=== PATIENT | female | born 1990 | race Two or more races ===

== ENCOUNTER 2019-10-25 00:32 | Inpatient (IN) | payer MEDICARE, MEDICAID ==
[~2019-10-25] VITALS: Ht 170.2 cm; Wt 81.9 kg
[2019-10-25] MEDS ORDERED: DIVA125SP PO (01:11)
[2019-10-25] MEDS ORDERED: HALO10 PO (01:11)
[2019-10-25 02:02] LABS: BASOPHILS % (AUTO) 0.7 % (0.0-2.0); EOSINOPHILS % (AUTO) 1.2 % (1.0-6.0); HEMATOCRIT 34.9 % (36-46); HEMOGLOBIN 11.6 g/dL (12.0-16.0); LYMPHOCYTES # (AUTO) 3.7 K/uL (1.0-4.8); LYMPHOCYTES % (AUTO) 29.1 % (22.0-44.0); MEAN CORPUSCULAR HEMOGLOBIN 28.9 pg (26.0-34.0); MEAN CORPUSCULAR HGB CONC 33.2 G/dL (31.0-37.0); MEAN CORPUSCULAR VOLUME 87 fL (80-100); MONOCYTES # (AUTO) 1.1 K/uL (0.1-1.0); NEUTROPHILS # (AUTO) 7.6 K/uL (1.8-7.7); PLATELET COUNT (AUTO) 417 K/uL (150-450); RED BLOOD CELL COUNT(AUTO) 4.01 MIL/uL (4.00-5.20); RED CELL DISTRIBUTION WIDTH 15.7 % (11.5-14.5)
[2019-10-25 02:13] LABS: ANION GAP 9 mmol/L (8-16); CALCIUM, TOTAL 9.1 mg/dL (8.8-10.5); CARBON DIOXIDE 27 mmol/L (22-29); CHLORIDE 101 mmol/L (98-107); CREATININE 0.66 mg/dL (0.60-1.30); GLOMERULAR FILTR. RATE CALC > 60 mL/min (>60); GLUCOSE,RANDOM 106 mg/dL (70-110); SODIUM SERUM 137 mmol/L (136-145); UREA NITROGEN, BLOOD 8 mg/dL (7-18)
[2019-10-25 02:17] LABS: AMPHET/METH SCREEN,URINE NEGATIVE (NEGATIVE); BARBITURATE SCREEN, URINE NEGATIVE (NEGATIVE); BENZODIAZEPINES SCREEN,URINE NEGATIVE (NEGATIVE); CANNABINOID SCREEN,URINE NEGATIVE (NEGATIVE); COCAINE SCREEN,URINE NEGATIVE (NEGATIVE); METHADONE SCREEN, URINE NEGATIVE (NEGATIVE); OPIATE SCREEN,URINE NEGATIVE (NEGATIVE); PHENCYCLIDINE SCREEN,URINE NEGATIVE (NEGATIVE)
[2019-10-25 02:25] LABS: ALANINE AMINOTRANSFERASE 18 U/L (12-78); ALBUMIN 3.6 g/dL (3.4-5.0); ALKALINE PHOSPHATASE 71 U/L (46-116); ASPARTATE AMINOTRANSFERASE 12 U/L (15-37); BILIRUBIN,TOTAL 0.1 mg/dL (0.1-1.0); HCG,QUANTITATIVE < 1 mIU/mL (0-6); TOTAL PROTEIN, SERUM 7.2 g/dL (6.4-8.2); VALPROIC ACID 96 mcg/mL (50-100)
[2019-10-25] MEDS ORDERED: QUEtiapine FUMARATE 100 MG TABLET PO PRN (02:45)
[2019-10-25] MEDS ORDERED: LORazepam 2 MG TABLET PO PRN (02:45)
[2019-10-25] MEDS ORDERED: ZOLPIDEM TARTRATE 10 MG TABLET PO PRN (02:45)
[2019-10-25 04:10] LABS: APPEARANCE,URINE CLEAR (CLEAR); BILIRUBIN,URINE NEGATIVE (NEGATIVE); GLUCOSE, URINE (UA) NEGATIVE (NEGATIVE); KETONES,URINE NEGATIVE (NEGATIVE); LEUKOCYTE ESTERASE ,URINE SMALL (NEGATIVE); NITRATE,URINE NEGATIVE (NEGATIVE); OCCULT BLOOD,URINE NEGATIVE (NEGATIVE); PROTEIN,URINE NEGATIVE (NEGATIVE); UROBILINOGEN,URINE 0.2 mg/dL (<=1.0)
[2019-10-25 04:20] LABS: BACTERIA,URINE None Seen /HPF (None Seen); RBC,URINE None Seen /HPF (0-2); SQUAMOUS EPITHELIAL CELL,UR Few /LPF (None Seen)
[2019-10-25 05:51] VITALS: BP 125/68
[2019-10-25 09:55] VITALS: BP 112/66
[2019-10-25] MEDS: ESCITALOPRAM OXALATE 10 MG TABLET PO SCH (12:06)
[2019-10-25 20:00] VITALS: BP 106/61
[2019-10-25] MEDS: HALOPERIDOL 10 MG TABLET PO SCH (20:25)
[2019-10-25] MEDS: DIVALPROEX SODIUM 500 MG DR TABLET PO SCH (20:25)
[2019-10-26 08:41] LABS: CHOL/HDL RATIO 3.8 (3.9-5.7)
[2019-10-26 09:14] VITALS: BP 115/66
[2019-10-26] MEDS: ESCITALOPRAM OXALATE 10 MG TABLET PO SCH (09:30)
[2019-10-26] MEDS: HALOPERIDOL 5 MG TABLET PO SCH (12:39)
[2019-10-26 16:46] VITALS: BP 105/56
[2019-10-26] MEDS: DIVALPROEX SODIUM 500 MG DR TABLET PO SCH (20:30)
[2019-10-26] MEDS: HALOPERIDOL 10 MG TABLET PO SCH (20:30)
[2019-10-27 02:32] VITALS: BP 114/68
[2019-10-27] MEDS: HALOPERIDOL 5 MG TABLET PO SCH (09:15)
[2019-10-27] MEDS: ESCITALOPRAM OXALATE 10 MG TABLET PO SCH (09:15)
[2019-10-27 09:50] VITALS: BP 109/67
[2019-10-27 16:59] VITALS: BP 115/67
[2019-10-27] MEDS: DIVALPROEX SODIUM 500 MG DR TABLET PO SCH (20:43)
[2019-10-27] MEDS: HALOPERIDOL 10 MG TABLET PO SCH (20:44)
[2019-10-28 05:14] VITALS: BP 111/65
[2019-10-28] MEDS: ESCITALOPRAM OXALATE 10 MG TABLET PO SCH (08:01)
[2019-10-28] MEDS: HALOPERIDOL 5 MG TABLET PO SCH (08:02)
[2019-10-28 08:47] LABS: BASOPHILS % (AUTO) 0.5 % (0.0-2.0); EOSINOPHILS % (AUTO) 1.4 % (1.0-6.0); HEMATOCRIT 35.2 % (36-46); LYMPHOCYTES # (AUTO) 3.4 K/uL (1.0-4.8); MEAN CORPUSCULAR HEMOGLOBIN 29.5 pg (26.0-34.0); MEAN CORPUSCULAR HGB CONC 34.2 G/dL (31.0-37.0); MEAN CORPUSCULAR VOLUME 87 fL (80-100); MONOCYTES # (AUTO) 0.5 K/uL (0.1-1.0); NEUTROPHILS # (AUTO) 6.8 K/uL (1.8-7.7); NEUTROPHILS % (AUTO) 62.1 % (40.0-70.0); PLATELET COUNT (AUTO) 440 K/uL (150-450); RED BLOOD CELL COUNT(AUTO) 4.07 MIL/uL (4.00-5.20); RED CELL DISTRIBUTION WIDTH 15.7 % (11.5-14.5)
[2019-10-28 09:00] VITALS: BP 124/75
[2019-10-28 17:16] VITALS: BP 98/60
[2019-10-28] MEDS: HALOPERIDOL 10 MG TABLET PO SCH (20:37)
[2019-10-28] MEDS: DIVALPROEX SODIUM 500 MG DR TABLET PO SCH (20:37)
[2019-10-29 08:00] VITALS: BP 116/64
[2019-10-29] MEDS: HALOPERIDOL 5 MG TABLET PO SCH (08:00)
[2019-10-29] MEDS: ESCITALOPRAM OXALATE 10 MG TABLET PO SCH (08:01)
[2019-10-29 17:15] VITALS: BP 128/84
[2019-10-29] MEDS: HALOPERIDOL 10 MG TABLET PO SCH (20:57)
[2019-10-29] MEDS: DIVALPROEX SODIUM 500 MG DR TABLET PO SCH (20:57)
[2019-10-30 02:17] VITALS: BP 118/71
[2019-10-30] MEDS: ESCITALOPRAM OXALATE 10 MG TABLET PO SCH (08:10)
[2019-10-30] MEDS: HALOPERIDOL 5 MG TABLET PO SCH (08:10)
[2019-10-30 08:56] VITALS: BP 154/95
[2019-10-30] MEDS ORDERED: HALO5TAB2 PO (09:29)
[2019-10-30] MEDS ORDERED: ESCI10TA61 PO (09:29)
[2019-10-30] MEDS ORDERED: HALO10 PO (09:29)
[2019-10-30] MEDS ORDERED: DIVA-78 PO (09:29)
== END 2019-10-30 11:40 | DRG 885 ==
LOC: EMS 00:37 → 3EX 03:30
DX: F25.1 Schizoaffective disorder, depressive type (principal); R45.851 Suicidal ideations; F15.20 Other stimulant dependence, uncomplicated; F17.210 Nicotine dependence, cigarettes, uncomplicated; F41.9 Anxiety disorder, unspecified; D64.9 Anemia, unspecified; D72.829 Elevated white blood cell count, unspecified; Z79.899 Other long term (current) drug therapy; Z91.5 Personal history of self-harm
CPT/HCPCS: 87081; G0378; G0480

== ENCOUNTER 2020-08-03 18:45 | Emergency (ER) | payer MEDICARE, OTHER ==
[~2020-08-03 18:45] MED LIST: DIVA-112 PO; ESCI10TA61 PO; HALO10 PO; HALO5TAB2 PO
== END 2020-08-03 19:00 | disposition left against medical advice (07) ==
LOC: EMS 18:50
DX: R44.3 Hallucinations, unspecified (principal); Z53.21 Procedure and treatment not carried out due to patient leaving prior to being seen by health care provider